=== PATIENT | male | born 1970 | race American Indian/Alaskan Native ===

== ENCOUNTER 2018-09-18 10:38 | Outpatient (CLI) | payer OTHER ==
--- NOTE | 2018-09-18 11:31 | Mammography Report ---
BILATERAL BREAST DIAGNOSTIC MAMMOGRAM with CAD HISTORY: 47-year-old male with history of surgical excision of a left benign breast lump several year s ago. He reports tenderness in the left breast but no probable lump. COMPARISON: None. FINDINGS: Breast Density: predominantly fatty breast parenchymal pattern. Digital CC and MLO views of both breasts demonstrate no mass, architectural distortion or suspicious calcifications. Mild left outer postsurgical scar. IMPRESSION 1. No mammographic evidence of malignancy. 2. Mild benign postsurgical changes in the left breast. 3. Recommend clinical follow-up. BIRADS 2: Benign According to the [employer], yearly mammograms are recommended starting at age 40 and continuing as long as a woman is in good health. Clinical Breast Exams should be part of a period ic health exam-about every 3 years for women in their 20s and 30s and every year for women 40 and ove r. Breast self exam is an option for women starting in their 20s. Any breast change noted on a breast self exam should be reported promptly to the patient's healthcare provider. Breast MRI is recommende d for women with an approximately 20-25% or greater lifetime risk of breast cancer, including women w ith a strong family history of breast or ovarian cancer and women who have been treated for Hodgkin's disease. A negative Mammography report should not discourage follow up or biopsy of a clinically significant f inding and/or abnormality. Dense breast tissue may obscure small neoplasms. Signer Name: Peter Dow MD Signed: 09/18/2018 11:27 AM Workstation Name: [id number]
== END 2018-09-18 10:39 | disposition home or self-care (01) ==
LOC: MAMMO 10:38
DX: R92.8 Other abnormal and inconclusive findings on diagnostic imaging of breast (principal); Z98.890 Other specified postprocedural states
CPT/HCPCS: 77066

== ENCOUNTER 2020-09-23 09:41 | Outpatient (CLI) | payer OTHER ==
--- NOTE | 2020-09-23 14:31 | Mammography Report ---
BILATERAL DIGITAL DIAGNOSTIC MAMMOGRAM WITH CAD , 09/23/2020 LEFT LIMITED BREAST ULTRASOUND CLINICAL INFORMATION / INDICATION: Patient states the left nipple is hard and sensitive with swelling of the areola. Patient has history of benign left breast excisional biopsy. TECHNIQUE: Digital bilateral mammographic imaging was performed. Limited ultrasound was performed. Th is examination was interpreted with the benefit of Computer-Aided Detection (CAD) analysis. COMPARISON: Prior mammogram 09/18/2018 FINDINGS: Breast Density: The breasts are almost entirely fatty. MAMMOGRAPHIC FINDINGS: No dominant mass, suspicious calcifications, or architectural distortion in ei ther breast. There is no mammographic abnormality to account for the patient's clinical complaints of abnormal left nipple and area over swelling. The appearance of the mammogram is unchanged. ULTRASOUND FINDINGS: Targeted ultrasound evaluation was performed of the area of interest. Sonograp hic evaluation of the left nipple and subareolar area is unremarkable. There is no mass, cyst, or foc al area of shadowing noted. No appreciable skin thickening in this location. IMPRESSION: No mammographic or sonographic evidence of malignancy. Follow up recommendation: Clinical correlation BI-RADS Category 1: Negative. A "normal" or negative report should not discourage follow up or biopsy of a clinically significant f inding. A written summary of these findings will be mailed to the patient. The patient will be entered into a mammography reporting system which will generate a reminder letter for the patient's next appointmen t at the appropriate interval. According to the [employer], yearly mammograms are recommended starting at age 40 and continuing as long as a woman is in good health. Breast MRI is recommended for women with an piter roximately 20-25% or greater lifetime risk of breast cancer, including women with a strong family his tory of breast or ovarian cancer and women who have been treated for Hodgkin's disease. Signer Name: Michaela Fuller MD Signed: 09/23/2020 2:27 PM Workstation Name: [id number]
== END 2020-09-23 09:42 | disposition home or self-care (01) ==
LOC: MAMMO 09:41
PROVIDERS: ATTEND Adult Companion
DX: N64.4 Mastodynia (principal); R92.8 Other abnormal and inconclusive findings on diagnostic imaging of breast
CPT/HCPCS: 77066

== ENCOUNTER 2021-10-12 07:45 | Outpatient (CLI) | payer OTHER ==
--- NOTE | 2021-10-12 10:57 | Cat Scan Report ---
CT CHEST WITHOUT CONTRAST INDICATION / CLINICAL INFORMATION: R91.8. Pulmonary nodules. TECHNIQUE: Axial CT images were obtained through the chest without contrast. All CT scans at this [facility] ation are performed using CT dose reduction for ALARA by means of automated exposure control. COMPARISON: None available. FINDINGS: HEART: No significant abnormality. CORONARY ARTERY CALCIFICATION: Absent -- None. THORACIC AORTA: No significant abnormality. MEDIASTINUM / STEWART: No significant abnormality. PLEURA: No pleural effusion. No pneumothorax. LUNGS: No acute air space or interstitial disease. Mild paraseptal emphysematous changes are identifi ed in the lung apices. A large bulla in the left side measures up to 4.6 cm in diameter. No pulmonary nodule or mass is detected. ADDITIONAL FINDINGS: None. UPPER ABDOMEN: No significant abnormality. SKELETAL SYSTEM: No significant abnormality. IMPRESSION: 1. Mild emphysematous changes as described. No pulmonary nodule is detected. Signer Name: Kashif Justice Jr, MD Signed: 10/12/2021 10:53 AM Workstation Name: [id number]
== END 2021-10-12 07:46 | disposition home or self-care (01) ==
LOC: CT 07:45
DX: J43.9 Emphysema, unspecified (principal); R91.8 Other nonspecific abnormal finding of lung field; I25.10 Atherosclerotic heart disease of native coronary artery without angina pectoris
CPT/HCPCS: 71250